=== PATIENT | female | born 1980 | race Caucasian/White ===

== ENCOUNTER → 2021-03-03 | Outpatient (CLI) | payer BC ==
[2021-03-03 14:23] LABS: HEMOGLOBIN 13.3 gm/dl (12.3-15.3); RED BLOOD COUNT 4.47 M/UL (4.00-5.10); WHITE BLOOD COUNT 11.7 K/UL (4.5-11.0)
[2021-03-03 14:56] LABS: BUN/CREATININE RATIO 14 (0-10)
== END ==
LOC: LAB 12:14
PROVIDERS: Nurse Practitioner
DX: R07.9 Chest pain, unspecified (principal); R53.83 Other fatigue
CPT/HCPCS: 36415; 80053; 82550; 82553; 84484; 85025; 85379; 93005